=== PATIENT | female | born 1975 | race Caucasian/White ===

== ENCOUNTER 2021-09-20 11:28 | Emergency (ER) | payer OTHER ==
[2021-09-20 15:01] LABS: HEMOGLOBIN 12.1 gm/dl (12.3-15.3); RED BLOOD COUNT 3.81 M/UL (4.00-5.10)
[2021-09-20 15:17] LABS: BUN/CREATININE RATIO 27 (0-10)
== END 2021-09-20 19:15 | disposition home or self-care (01) ==
LOC: ER1 11:28
PROVIDERS: Physician Assistant Medical
DX: R07.89 Other chest pain (principal); Z88.0 Allergy status to penicillin; Z87.891 Personal history of nicotine dependence; Z79.899 Other long term (current) drug therapy
CPT/HCPCS: 36415; 71045; 80053; 82550; 82553; 83874; 84484; 85025; 85379; 93005; 99285